=== PATIENT | male | born 1990 | race Two or more races ===

== ENCOUNTER 2018-04-06 09:58 | Emergency (ER) | payer OTHER ==
[~2018-04-06] VITALS: Ht 180.3 cm; Wt 79.2 kg
[2018-04-06 10:04] VITALS: BP 144/99
== END 2018-04-06 10:50 | disposition home or self-care (01) ==
LOC: ED 10:40
DX: H10.021 Other mucopurulent conjunctivitis, right eye (principal)
CPT/HCPCS: 99283

== ENCOUNTER 2018-04-12 09:51 | Emergency (ER) | payer OTHER ==
[~2018-04-12] VITALS: Ht 180.3 cm; Wt 80.0 kg
[2018-04-12 09:59] VITALS: BP 122/71
== END 2018-04-12 10:48 | disposition home or self-care (01) ==
LOC: ED 10:29
DX: H10.11 Acute atopic conjunctivitis, right eye (principal)
CPT/HCPCS: 99283